=== PATIENT | male | born 1965 | race Caucasian/White ===

== ENCOUNTER 2018-05-10 17:40 | Emergency (ER) | payer MEDICAID ==
--- NOTE | 2018-05-10 18:07 | ED ---
Lower Extremity - HPI Summary HPI Summary: Patient complains of right calf pain 3 days. Denies initial traumatic event. Pain has been progressive, worse with walking, worse when lying flat at night. States no pain when leg is elevated. No active pain here in the ED. Denies CP, SOB, fever, cough, sore throat, N/V/D, abdominal pain, change in urine, change in BM on history of blood clots, recent surgery or trauma, history of cancer, family history of blood clots, recent immobility. Nonsmoker. Daily EtOH. - History of Current Complaint Chief Complaint: EDExtremityLower Stated Complaint: LEG PAIN PER EMS Time Seen by Provider: 05/10/18 17:43 Hx Obtained From: Patient Mechanism Of Injury: Unknown Onset of Pain: Days Onset/Duration: Days Severity Initially: Moderate Severity Currently: None Pain Intensity: 0 Pain Scale Used: 0-10 Numeric Timing: Intermittent Location: Is Discrete @ Character Of Pain: Aching Associated Signs And Symptoms: Positive: Swelling, Redness Aggravating Factor(s): Standing, Ambulation, Movement, Weight Bearing Alleviating Factor(s): Elevation Able to Bear Weight: Yes - Allergies/Home Medications Allergies/Adverse Reactions: Allergies Allergy/AdvReac Type Severity Reaction Status Date / Time No Known Allergies Allergy Verified 05/10/18 17:41 Home Medications: Home Medications OLANZapine 10 mg PO DAILY 05/10/18 [History Confirmed 05/10/18] PMH/Surg Hx/FS Hx/Imm Hx Endocrine/Hematology History: Denies: Hx Anticoagulant Therapy Cardiovascular History: Denies: Hx Pacemaker/ICD History: Denies: Hx Dialysis Sensory History: Denies: Hx Eye Prosthesis Opthamlomology History: Denies: Hx Legally Blind EENT History: Denies: Hx Deafness Neurological History: Denies: Hx Dementia Psychiatric History: Denies: Hx Autism Infectious Disease History: No Infectious Disease History: Denies: Traveled Outside the [place] in Last 30 Days - Social History Alcohol Use: Daily Substance Use Type: Reports: None Smoking Status (MU): Never Smoked Tobacco Review of Systems Constitutional: Negative Eyes: Negative ENT: Negative Cardiovascular: Negative Respiratory: Negative Gastrointestinal: Negative Genitourinary: Negative Musculoskeletal: Other Skin: Negative Neurological: Negative Psychological: Normal All Other Systems Reviewed And Are Negative: Yes Physical Exam - Summary Physical Exam Summary: Some erythema, extra warmth, mild swelling to right lower leg versus left lower leg. No wound or indication of trauma noted to right lower extremity. Tenderness to palpation of right calf. No tightness to calf. PMS intact distally. Full active range of motion of right knee without any pain. Triage Information Reviewed: Yes Vital Signs On Initial Exam: Initial Vitals Temp Pulse Resp BP Pulse Ox 97.4 F 83 17 127/74 96 05/10/18 17:41 05/10/18 17:41 05/10/18 17:41 05/10/18 17:41 05/10/18 17:41 Vital Signs Reviewed: Yes Appearance: Positive: Well-Appearing Skin: Positive: Warm Head/Face: Positive: Normal Head/Face Inspection Eyes: Positive: Normal Neck: Positive: Supple Respiratory/Lung Sounds: Positive: Clear to Auscultation Cardiovascular: Positive: Normal Abdomen Description: Positive: Nontender Musculoskeletal: Positive: Normal Neurological: Positive: Normal Psychiatric: Positive: Normal AVPU Assessment: Alert - Tad Coma Scale Best Eye Response: 4 - Spontaneous Best Motor Response: 6 - Obeys Commands Best Verbal Response: 5 - Oriented Coma Scale Total: 15 Diagnostics - Vital Signs Vital Signs Temp Pulse Resp BP Pulse Ox 05/10/18 17:41 97.4 F 83 17 127/74 96 - Laboratory Result Diagrams: 05/10/18 19:53 05/10/18 19:53 Lab Statement: Any lab studies that have been ordered have been reviewed, and results considered in the medical decision making process. Lower Extremity Course/Dx - Course Course Of Treatment: Patient complains of right calf pain 3 days. Denies initial traumatic event. Pain has been progressive, worse with walking, worse when lying flat at night. States no pain when leg is elevated. No active pain here in the ED. Denies CP, SOB, fever, cough, sore throat, N/V/D, abdominal pain , change in urine, change in BM on history of blood clots, recent surgery or trauma, history of cancer, family history of blood clots, recent immobility. Nonsmoker. Daily EtOH. Physical exam:Some erythema, extra warmth, mild swelling to right lower leg versus left lower leg. No wound or indication of trauma noted to right lower extremity. Tenderness to palpation of right calf. No tightness to calf. PMS intact distally. Full active range of motion of right knee without any pain. Vital signs within normal limits. Ultrasound right lower extremity positive for DVT in distal femoral vein, popliteal vein and the deep veins of the calf with occlusive thrombus. CMP indicates normal kidney function. Started patient on Xarelto 15mg here in the ED. Rx for Xarelto 15 mg by mouth twice a day 21 days, follow-up with primary care for further evaluation and determination on whether to continue treatment. Patient understands and approves plan. - Diagnoses Provider Diagnoses: DVT (deep venous thrombosis) Discharge - Sign-Out/Discharge Documenting (check all that apply): Patient Departure Patient Received Moderate/Deep Sedation with Procedure: No - Discharge Plan Condition: Stable Disposition: HOME Prescriptions: Rivaroxaban TAB(*) [Xarelto 15 mg(*)] 15 mg PO BID 21 Days #41 tab Patient Education Materials: Deep Vein Thrombosis (ED) Referrals: Consuelo Morfin MD [Primary Care Provider] - Additional Instructions: Take medication as directed twice a day for 21 days. Follow up with your primary care for further evaluation to determine if you need to take further treatment after 21 days for lower extremity blood clot. Return to the ED for any new or worsening symptoms. - Billing Disposition and Condition Condition: STABLE Disposition: Home
[2018-05-10 20:01] LABS: ABS Basophils 0 10^3/ul (0-0.2); ABS Eosinophils 0 10^3/ul (0-0.6); ABS Lymphocytes 1.7 10^3/ul (1.0-4.8); ABS Monocytes 0.8 10^3/ul (0-0.8); ABS Neutrophils 5.9 10^3/ul (1.5-7.7); ABS Nucleated RBC 0 10^3/ul; Eosinophil % 0.4 %; Hematocrit 45 % (36-46); Hemoglobin 15.4 g/dL (14.0-18.0); Lymphocyte % 19.9 %; Mean Corpuscular HGB Conc 34 g/dL (31-36); Mean Corpuscular Hemoglobin 30 pg (27-31); Mean Corpuscular Volume 88 fL (80-94); Mean Platelet Volume 7.1 fL (7.4-10.4); Nucleated Red Blood Cells % 0; Platelet Count 205 10^3/uL (150-450); Red Cell Distribution Width 14 % (10.5-15); White Blood Count 8.4 10^3/uL (3.5-10.8)
[2018-05-10 20:18] LABS: Albumin 4.1 g/dL (3.2-5.2); Albumin/Globulin Ratio 1.4 (1-3); BUN/Creatinine Ratio 9.7 (8-20); Calcium 9.1 mg/dL (8.6-10.3); EGFR African American 103.6 (>60); EGFR Non-African American 85.7 (>60); Globulin 2.9 g/dL (2-4); Potassium 4.3 mmol/L (3.5-5.0); Total Bilirubin 0.5 mg/dL (0.2-1.0)
[2018-05-10] MEDS ORDERED: Rivaroxaban TAB(*) 15 MG PO ONE (20:22)
[2018-05-10 20:24] VITALS: BP 129/86
== END 2018-05-10 20:35 | disposition home or self-care (01) ==
LOC: ED 17:40
DX: I82.4Z1 Acute embolism and thrombosis of unspecified deep veins of right distal lower extremity (principal)
CPT/HCPCS: 36415; 80053; 85025; 99283

== ENCOUNTER 2018-05-12 16:17 | Emergency (ER) | payer MEDICAID ==
[2018-05-12] MEDS ORDERED: traMADol TAB* 50 MG PO ONE (19:02)
[2018-05-12] MEDS ORDERED: Rivaroxaban TAB(*) 15 MG PO ONE (19:17)
--- NOTE | 2018-05-12 19:19 | ED ---
Lower Extremity - HPI Summary HPI Summary: 52-year-old male presents with continued right calf pain. He was diagnosed with a dvt on Saturday. He states he was given a dose of xarleto and he went to the pharmacy and he cannot pick it up due to insurance issue needing prior authorization. He denies any chest pain or shortness breath. No palpitations. No change in location of the pain. He states that he is barely able to walk around due to pain. - History of Current Complaint Chief Complaint: EDExtremityLower Stated Complaint: BLOOD CLOT IN MY LEG CAUSING PAIN-PER PT Time Seen by Provider: 05/12/18 18:17 Pain Intensity: 10 - Allergies/Home Medications Allergies/Adverse Reactions: Allergies Allergy/AdvReac Type Severity Reaction Status Date / Time No Known Allergies Allergy Verified 05/12/18 16:32 Home Medications: Home Medications OLANzapine TAB* [Zyprexa 10 MG TAB*] 10 mg PO BEDTIME 05/12/18 [History Confirmed 05/12/18] amLODIPine TAB* [Norvasc 5 mg TAB*] 2.5 mg PO DAILY 05/12/18 [History Confirmed 05/12/18] PMH/Surg Hx/FS Hx/Imm Hx Endocrine/Hematology History: Denies: Hx Anticoagulant Therapy Cardiovascular History: Denies: Hx Pacemaker/ICD History: Denies: Hx Dialysis Sensory History: Denies: Hx Eye Prosthesis, Hx Legally Blind, Hx Deafness Opthamlomology History: Denies: Hx Eye Prosthesis, Hx Legally Blind Neurological History: Denies: Hx Dementia Psychiatric History: Denies: Hx Autism Infectious Disease History: No Infectious Disease History: Denies: Traveled Outside the [place] in Last 30 Days - Family History Known Family History: Negative: Blood Disorder - Social History Alcohol Use: Daily Substance Use Type: Reports: None Smoking Status (MU): Never Smoked Tobacco Review of Systems Negative: Fever Negative: Chest Pain Negative: Shortness Of Breath Positive: Myalgia - right calf pain All Other Systems Reviewed And Are Negative: Yes Physical Exam Triage Information Reviewed: Yes Vital Signs On Initial Exam: Initial Vitals Temp Pulse Resp BP Pulse Ox 98.7 F 91 16 132/88 96 05/12/18 16:27 05/12/18 16:27 05/12/18 16:27 05/12/18 16:27 03/18/19 16:27 Vital Signs Reviewed: Yes Appearance: Positive: Well-Appearing Skin: Positive: Warm, Dry Head/Face: Positive: Normal Head/Face Inspection Eyes: Positive: Normal, Conjunctiva Clear ENT: Positive: Pharynx normal Respiratory/Lung Sounds: Positive: Clear to Auscultation, Breath Sounds Present Cardiovascular: Positive: Normal, RRR Musculoskeletal: Positive: Limited @ - right leg, Other - tenderness right calf , good pulses Neurological: Positive: Normal Psychiatric: Positive: Normal Diagnostics - Vital Signs Vital Signs Temp Pulse Resp BP Pulse Ox 05/12/18 16:27 98.7 F 91 16 132/88 96 - Laboratory Lab Statement: Any lab studies that have been ordered have been reviewed, and results considered in the medical decision making process. Lower Extremity Course/Dx - Course Course Of Treatment: 52-year-old male presents with continued right calf pain. He was diagnosed with a dvt on Saturday. He states he was given a dose of xarleto and he went to the pharmacy and he cannot pick it up due to insurance issue needing prior authorization. He denies any chest pain or shortness breath. No palpitations. No change in location of the pain. He states that he is barely able to walk around due to pain. On exam tenderness of right calf. Neurovascular intact. called pharmacy and said there is a prior authorization issue. Pharmacy says only heparin and warfarin do not require prior authorization. Discussed switching to warfarin patient declined. Wants to continue Xarelto. Discuss with our pharmacy and can give a 5 day course of it. Gave a 5 day course and told to call primary for prior authorization. Gave short course of pain medication. Patient understands agrees with plan. - Diagnoses Differential Diagnosis/HQI/PQRI: Positive: DVT, Sprain, Strain Provider Diagnoses: DVT (deep venous thrombosis) Discharge - Sign-Out/Discharge Documenting (check all that apply): Patient Departure Patient Received Moderate/Deep Sedation with Procedure: No - Discharge Plan Condition: Good Disposition: HOME Prescriptions: traMADol TAB* [Ultram*] 50 mg PO Q12H PRN #6 tab MDD 2 PRN Reason: Pain Patient Education Materials: Deep Vein Thrombosis (ED) Referrals: Consuelo Morfin MD [Primary Care Provider] - [facility] [Outside] Additional Instructions: call primary tomorrow for prior authorization for xarelto Take xarelto twice a day for 21 days Take with food Avoid Aspirin or ibuprofen, use Tylenol for pain, use tramadol every 12 hours for break through pain Follow up with primary care physician for continued care Return to ED if develop any chest pain or shortness of breath any new or worsening symptoms - Billing Disposition and Condition Condition: GOOD Disposition: Home
[2018-05-12 20:11] VITALS: BP 119/76
== END 2018-05-12 20:11 | disposition home or self-care (01) ==
LOC: ED 16:17
DX: I82.4Z1 Acute embolism and thrombosis of unspecified deep veins of right distal lower extremity (principal); M79.661 Pain in right lower leg
CPT/HCPCS: 99283; A9270-GY

== ENCOUNTER 2018-07-04 10:23 | Emergency (ER) | payer MEDICAID, OTHER ==
[2018-07-04] MEDS ORDERED: Lidocaine 1%* 5 ML VIAL ONE (10:55)
[2018-07-04] MEDS ORDERED: Bacitracin OINTMENT* 0.5% 0.5 oz TUBE ONE (10:56)
--- NOTE | 2018-07-04 10:56 | ED ---
Lower Extremity - HPI Summary HPI Summary: This patient is a 52 year old M presenting to ED with a chief complaint of R upper leg pain with swelling since 06/30/18. The CC is described as worsened since onset. The patient rates the pain 8/10 in severity. Symptoms aggravated by nothing. Symptoms alleviated by nothing. Patient denies any recent trauma/ injury to the R leg, fever, and chills. Patient is on Xarelto. PMHx of DVT in the same leg. - History of Current Complaint Chief Complaint: EDExtremityLower Stated Complaint: RT LEG PAIN PER PT Time Seen by Provider: 07/04/18 10:32 Hx Obtained From: Patient Onset of Pain: Days Onset/Duration: Still Present Severity Currently: Severe Pain Intensity: 8 Pain Scale Used: 0-10 Numeric Timing: Constant, Lasting Days Location: Is Discrete @ - R upper leg Associated Signs And Symptoms: Positive: Swelling - at the R upper leg. Negative: Fever Aggravating Factor(s): Nothing Alleviating Factor(s): Nothing - Allergies/Home Medications Allergies/Adverse Reactions: Allergies Allergy/AdvReac Type Severity Reaction Status Date / Time No Known Allergies Allergy Verified 07/04/18 10:28 Home Medications: Home Medications Atorvastatin* [Lipitor 10 MG*] 10 mg PO DAILY 07/04/18 [History Confirmed ] PMH/Surg Hx/FS Hx/Imm Hx Endocrine/Hematology History: Denies: Hx Anticoagulant Therapy Cardiovascular History: Denies: Hx Pacemaker/ICD History: Denies: Hx Dialysis Sensory History: Denies: Hx Eye Prosthesis, Hx Legally Blind, Hx Deafness Opthamlomology History: Denies: Hx Eye Prosthesis, Hx Legally Blind Neurological History: Denies: Hx Dementia Psychiatric History: Denies: Hx Autism Infectious Disease History: No Infectious Disease History: Denies: Traveled Outside the [place] in Last 30 Days - Family History Known Family History: Negative: Blood Disorder - Social History Alcohol Use: Daily Substance Use Type: Reports: None Smoking Status (MU): Never Smoked Tobacco Review of Systems Negative: Fever, Chills Positive: Other - R upper leg pain with swelling; denies any recent injury/ trauma to the R leg All Other Systems Reviewed And Are Negative: Yes Physical Exam - Summary Physical Exam Summary: VITAL SIGNS: Reviewed. GENERAL: Patient is a well-developed and nourished MALE who is lying comfortable in the stretcher. Patient is not in any acute respiratory distress. HEAD AND FACE: No signs of trauma. No ecchymosis, hematomas or skull depressions. No sinus tenderness. EYES: PERRLA, EOMI x 2, No injected conjunctiva, no nystagmus. EARS: Hearing grossly intact. Ear canals and tympanic membranes are within normal limits. MOUTH: Oropharynx within normal limits. NECK: Supple, trachea is midline, no adenopathy, no JVD, no carotid bruit, no c- spine tenderness, neck with full ROM. CHEST: Symmetric, no tenderness at palpation LUNGS: Clear to auscultation bilaterally. No wheezing or crackles. CVS: Regular rate and rhythm, S1 and S2 present, no murmurs or gallops appreciated. ABDOMEN: Soft, non-tender. No signs of distention. No rebound no guarding, and no masses palpated. Bowel sounds are normal. EXTREMITIES: FROM in all major joints, no edema, no cyanosis or clubbing. NEURO: Alert and oriented x 3. No acute neurological deficits. Speech is normal and follows commands. SKIN: Dry and warm. Small abscess on the medial aspect of the R thigh. Triage Information Reviewed: Yes Vital Signs On Initial Exam: Initial Vitals Temp Pulse Resp BP Pulse Ox 98.5 F 86 16 113/86 97 07/04/18 10:25 07/04/18 10:25 07/04/18 10:25 07/04/18 10:25 07/04/18 10:25 Vital Signs Reviewed: Yes Procedures - Incision and Drainage Right Upper Leg Site: medial aspect of R thigh Anesthesia: Lidocaine Instrument(s): Needle - 18 gauge Packing: Other - Little aspiration of the abscess was done which produced significant of purulent material. There were no complications. Bacitracin was applied. Culture was sent. Diagnostics - Vital Signs Vital Signs Temp Pulse Resp BP Pulse Ox 07/04/18 10:25 98.5 F 86 16 113/86 97 - Laboratory Lab Statement: Any lab studies that have been ordered have been reviewed, and results considered in the medical decision making process. Lower Extremity Course/Dx - Course Assessment/Plan: This patient is a 52-year-old male who presents to the emergency department with a chief complaint of right thigh pain. The patient reports that he has history of a DVT for which the patient is taking Eliquis. In the physical exam: The patient has a small abscess at the medial aspect of the thigh. I did a needle aspiration of the abscess with expression of purulent material. Bacitracin was applied. Patient was given Bactrim and discharged home with follow-up with primary care physician in the next 2-3 days for wound check. He was instructed to return to the emergency department if develops any increase in pain, increasing swelling, or any other symptoms. The patient understands and agrees. The patient was found the be positive for MRSA but was given Bactrim in the ED course. - Diagnoses Differential Diagnosis/HQI/PQRI: Positive: Cellulitis, Other - abscess Provider Diagnoses: Abscess of right thigh, Cellulitis of right thigh Discharge - Sign-Out/Discharge Documenting (check all that apply): Patient Departure - discharge Patient Received Moderate/Deep Sedation with Procedure: No - Discharge Plan Condition: Stable Disposition: HOME Prescriptions: Sulfamethox/Trimethoprim DS* [Bactrim DS 800/160 TAB*] 1 tab PO BID #14 tab Patient Education Materials: Cellulitis (ED), Abscess (ED) Referrals: Consuelo Morfin MD [Primary Care Provider] - (Follow up in 2-3 days.) Additional Instructions: FOLLOW UP WITH YOUR PRIMARY CARE PROVIDER IN 2-3 DAYS. RETURN TO THE ED FOR ANY WORSENING OR NEW SYMPTOMS. - Billing Disposition and Condition Condition: STABLE Disposition: Home - Attestation Statements Document Initiated by aPn: Yes Documenting Scribe: Danny Schwartz Provider For Whom Pan is Documenting (Include Credential): Jm May MD Scribe Attestation: Danny Tena, scribed for Jm May MD on 07/04/18 at 1522. Scribe Documentation Reviewed: Yes Provider Attestation: The documentation as recorded by the Danny anna accurately reflects the service I personally performed and the decisions made by me, Jm May MD Status of Scribe Document: Viewed
[2018-07-04] MEDS ORDERED: Bacitracin OINTMENT* 0.5% 0.5 oz TUBE TOPICAL ONE (11:05)
[2018-07-04] MEDS ORDERED: Lidocaine 1%* 5 ML VIAL INJ ONE (11:05)
[2018-07-04] MEDS ORDERED: Sulfamethox/Trimethoprim DS 800/160* TAB PO ONE (11:07)
[2018-07-04 11:31] VITALS: BP 126/77
--- NOTE | 2018-07-05 10:33 | PN ---
Progress Note - Progress Note Date of Service: 07/04/18 Note: Pt. seen in ED 07/04 and started on Bactrim for an abscess. Preliminary wound culture is MRSA +, should be covered by Bactrim. Pending sensitivities. No change in treatment at this time.
--- NOTE | 2018-07-07 07:53 | PN ---
Progress Note - Progress Note Date of Service: 07/04/18 Note: Patient was placed on Bactrim prior to discharge This is sensitive to organism of MRSA Nothing further at this time
== END 2018-07-04 11:30 | disposition home or self-care (01) ==
LOC: ED 10:23
DX: L03.115 Cellulitis of right lower limb (principal); Z86.718 Personal history of other venous thrombosis and embolism; Z79.01 Long term (current) use of anticoagulants
CPT/HCPCS: 10060; 87070; 87077; 87186; 87205; 87640; 87641; 96374; 99282; A9270-GY